=== PATIENT | male | born 1990 | race Hispanic/Latino ===

== ENCOUNTER 2017-08-19 10:45 | Emergency (ER) | payer SELFPAY ==
[2017-08-19] MEDS ORDERED: Acetaminophen 500 MG TAB ONE (11:39)
[2017-08-19] MEDS ORDERED: Ibuprofen 800 MG TAB ONE (11:45)
== END 2017-08-19 11:50 | disposition home or self-care (01) ==
LOC: NAV ERS 10:45
DX: J11.1 Influenza due to unidentified influenza virus with other respiratory manifestations (principal)
CPT/HCPCS: 99282